=== PATIENT | male | born 1970 | race Caucasian/White ===

== ENCOUNTER 2017-12-23 06:11 | Emergency (ER) | payer OTHER ==
[~2017-12-23] VITALS: Ht 182.9 cm; Wt 113.0 kg
[2017-12-23 06:32] VITALS: BP 121/60
[2017-12-23] MEDS ORDERED: LIDOcaine 1%/PF 5ML 10 MG/ML VIAL IJ ONE (07:15)
[2017-12-23] MEDS ORDERED: CEPH500C5 PO (07:58)
== END 2017-12-23 08:25 | disposition home or self-care (01) ==
LOC: ER 06:11
DX: S61.211A Laceration without foreign body of left index finger without damage to nail, initial encounter (principal); F12.90 Cannabis use, unspecified, uncomplicated; Z79.899 Other long term (current) drug therapy; W45.8XXA Other foreign body or object entering through skin, initial encounter; Y93.89 Activity, other specified; Y92.89 Other specified places as the place of occurrence of the external cause; Y99.8 Other external cause status
CPT/HCPCS: 12002; 99283; A6222; A6449; J2001

== ENCOUNTER 2019-07-06 15:23 | Emergency (ER) | payer OTHER ==
[~2019-07-06] VITALS: Ht 180.3 cm; Wt 122.5 kg
[2019-07-06 15:28] VITALS: BP 107/71
[2019-07-06] MEDS ORDERED: CEPH-572 PO (17:01)
== END 2019-07-06 17:06 | disposition home or self-care (01) ==
LOC: ER 15:24
DX: S61.012A Laceration without foreign body of left thumb without damage to nail, initial encounter (principal); F17.220 Nicotine dependence, chewing tobacco, uncomplicated; F12.90 Cannabis use, unspecified, uncomplicated; F10.99 Alcohol use, unspecified with unspecified alcohol-induced disorder; Z79.899 Other long term (current) drug therapy; W22.8XXA Striking against or struck by other objects, initial encounter; Y93.89 Activity, other specified; Y92.89 Other specified places as the place of occurrence of the external cause; Y99.0 Civilian activity done for income or pay; Y90.9 Presence of alcohol in blood, level not specified
CPT/HCPCS: 12041; 73140; 99283; 99284

== ENCOUNTER 2019-07-10 10:27 | Outpatient (CLI) | payer OTHER ==
[~2019-07-10 10:27] MED LIST: CEPH-572 PO
[2019-07-10] MEDS ORDERED: LIDOcaine 2% 5ml jelly ONE (11:26)
[2019-07-10] MEDS ORDERED: mupirocin 2% ointment 22GM ONE (12:10)
== END 2019-07-10 12:26 | disposition home or self-care (01) ==
LOC: WOUND CARE 10:27 → EDSTATUS 10:30 → WOUND CARE 12:26
PROVIDERS: ATTEND Surgery
DX: S61.201A Unspecified open wound of left index finger without damage to nail, initial encounter (principal); S61.002A Unspecified open wound of left thumb without damage to nail, initial encounter; Z79.899 Other long term (current) drug therapy; F12.90 Cannabis use, unspecified, uncomplicated; F17.290 Nicotine dependence, other tobacco product, uncomplicated; X58.XXXA Exposure to other specified factors, initial encounter; Y93.89 Activity, other specified; Y92.89 Other specified places as the place of occurrence of the external cause; Y99.8 Other external cause status
CPT/HCPCS: A6222; G0463; A4663; A6021; A6154

== ENCOUNTER 2019-07-13 09:10 | Outpatient (CLI) | payer OTHER ==
[2019-07-13] MEDS ORDERED: LIDOcaine 2% 5ml jelly ONE (09:37)
[2019-07-13] MEDS ORDERED: mupirocin 2% ointment 22GM ONE (10:41)
== END 2019-07-13 11:00 | disposition home or self-care (01) ==
LOC: WOUND CARE 09:10 → EDSTATUS 09:30 → WOUND CARE 11:00
PROVIDERS: ATTEND Surgery
DX: S61.201D Unspecified open wound of left index finger without damage to nail, subsequent encounter (principal); S61.002D Unspecified open wound of left thumb without damage to nail, subsequent encounter; F12.90 Cannabis use, unspecified, uncomplicated; F17.290 Nicotine dependence, other tobacco product, uncomplicated; Z79.899 Other long term (current) drug therapy; X58.XXXD Exposure to other specified factors, subsequent encounter
CPT/HCPCS: A6222; G0463; A4663

== ENCOUNTER 2019-07-17 09:20 | Day surgery (SDC) | payer OTHER ==
[2019-07-17] MEDS ORDERED: LIDOcaine 2% 5ml jelly ONE (09:47)
== END 2019-07-17 11:06 | disposition home or self-care (01) ==
LOC: WOUND CARE 09:20
PROVIDERS: ATTEND Surgery
DX: S61.002D Unspecified open wound of left thumb without damage to nail, subsequent encounter (principal); F12.90 Cannabis use, unspecified, uncomplicated; F17.290 Nicotine dependence, other tobacco product, uncomplicated; Z79.899 Other long term (current) drug therapy; X58.XXXD Exposure to other specified factors, subsequent encounter

== ENCOUNTER 2019-07-20 09:15 | Day surgery (SDC) | payer OTHER ==
[2019-07-20] MEDS ORDERED: LIDOcaine 2% 5ml jelly ONE (10:01)
== END 2019-07-20 10:59 | disposition home or self-care (01) ==
LOC: WOUND CARE 09:15
PROVIDERS: ATTEND Surgery
DX: S61.002D Unspecified open wound of left thumb without damage to nail, subsequent encounter (principal); F12.90 Cannabis use, unspecified, uncomplicated; F17.290 Nicotine dependence, other tobacco product, uncomplicated; Z79.899 Other long term (current) drug therapy; X58.XXXD Exposure to other specified factors, subsequent encounter

== ENCOUNTER 2019-07-24 09:10 | Day surgery (SDC) | payer OTHER ==
[2019-07-24] MEDS ORDERED: LIDOcaine 2% 5ml jelly ONE (10:37)
== END 2019-07-24 11:25 | disposition home or self-care (01) ==
LOC: WOUND CARE 09:10
PROVIDERS: ATTEND Surgery
DX: S61.002D Unspecified open wound of left thumb without damage to nail, subsequent encounter (principal); F12.90 Cannabis use, unspecified, uncomplicated; F17.290 Nicotine dependence, other tobacco product, uncomplicated; Z79.899 Other long term (current) drug therapy; X58.XXXD Exposure to other specified factors, subsequent encounter

== ENCOUNTER 2019-07-31 09:15 | Day surgery (SDC) | payer OTHER ==
[2019-07-31] MEDS ORDERED: LIDOcaine 2% 5ml jelly ONE (10:15)
== END 2019-07-31 11:27 | disposition home or self-care (01) ==
LOC: WOUND CARE 09:15
PROVIDERS: ATTEND Surgery
DX: S61.002D Unspecified open wound of left thumb without damage to nail, subsequent encounter (principal); S61.201D Unspecified open wound of left index finger without damage to nail, subsequent encounter; F12.90 Cannabis use, unspecified, uncomplicated; F17.290 Nicotine dependence, other tobacco product, uncomplicated; Z79.899 Other long term (current) drug therapy; X58.XXXD Exposure to other specified factors, subsequent encounter
CPT/HCPCS: 97597

== ENCOUNTER 2019-08-07 10:58 | Day surgery (SDC) | payer OTHER ==
[2019-08-07] MEDS ORDERED: LIDOcaine 2% 5ml jelly ONE (11:55)
== END 2019-08-07 12:10 | disposition home or self-care (01) ==
LOC: WOUND CARE 10:58
PROVIDERS: ATTEND Surgery
DX: S61.002D Unspecified open wound of left thumb without damage to nail, subsequent encounter (principal); F12.90 Cannabis use, unspecified, uncomplicated; F17.290 Nicotine dependence, other tobacco product, uncomplicated; Z79.899 Other long term (current) drug therapy; X58.XXXD Exposure to other specified factors, subsequent encounter
CPT/HCPCS: 97597

== ENCOUNTER 2019-08-14 09:10 | Day surgery (SDC) | payer OTHER ==
[2019-08-14] MEDS ORDERED: LIDOcaine/PRILOcaine 5gm cream TP ONE (09:32)
== END 2019-08-14 11:07 | disposition home or self-care (01) ==
LOC: WOUND CARE 09:10
PROVIDERS: ATTEND Surgery
DX: S61.002D Unspecified open wound of left thumb without damage to nail, subsequent encounter (principal); F12.90 Cannabis use, unspecified, uncomplicated; F17.290 Nicotine dependence, other tobacco product, uncomplicated; Z79.899 Other long term (current) drug therapy; X58.XXXD Exposure to other specified factors, subsequent encounter
CPT/HCPCS: 97597; A6222; A4663; A6021

== ENCOUNTER 2019-08-21 09:00 | Outpatient (CLI) | payer OTHER ==
[2019-08-21] MEDS ORDERED: LIDOcaine 2% 5ml jelly ONE (09:17)
== END 2019-08-21 10:41 | disposition home or self-care (01) ==
LOC: EDSTATUS 09:00 → WOUND CARE 09:00
PROVIDERS: ATTEND Surgery
DX: S61.102D Unspecified open wound of left thumb with damage to nail, subsequent encounter (principal); F12.90 Cannabis use, unspecified, uncomplicated; F17.290 Nicotine dependence, other tobacco product, uncomplicated; Z79.899 Other long term (current) drug therapy; X58.XXXD Exposure to other specified factors, subsequent encounter
CPT/HCPCS: A4663; G0463